=== PATIENT | female | born 1980 | race Native Hawaiian/Other Pacific Islander ===

== ENCOUNTER 2018-02-15 22:29 | Emergency (ER) | payer OTHER ==
[~2018-02-15] VITALS: Ht 160 cm; Wt 63.5 kg
--- NOTE | 2018-02-15 23:08 | NUR ---
PT AAOX4, AMBULATORY IN NO DISTRESS.C/O GENERALIZED HEADACHE, CANDICE HAND NUMBNESS,AND TINGLING OF THE LIPS, NO NEURO DEFICITS NOTED.PT BREATHING EVEN UNLABORED, ABD SOFT NON DISTENDED WITH +BS, SKIN W/D TO TOUCH WITH GOOD TURGOR, DENIES URINARY SYMPTOMS.BED IN LOWEST POSITION,LOCKED, HOB UP,SR UP X2 FOR SAFETY,CB WITHIN REACH, WILL CONTINUE WITH POC
[2018-02-15 23:22] LABS: BASOPHILS # (AUTO) 0.1 K/uL (0.0-8.0); EOSINOPHILS # (AUTO) 0.3 K/uL (0.0-0.7); EOSINOPHILS % (AUTO) 2.2 % (0.0-7.0); HEMATOCRIT 40.6 % (31.2-41.9); LYMPHOCYTES # (AUTO) 2.6 K/uL (20.0-40.0); LYMPHOCYTES % (AUTO) 20.8 % (20.5-51.5); MEAN CORPUSCULAR HEMOGLOBIN 30.3 uug (24.7-32.8); MEAN CORPUSCULAR HGB CONC 35 g/dL (32.3-35.6); MEAN CORPUSCULAR VOLUME 87.9 fL (75.5-95.3); MONOCYTES # (AUTO) 0.6 K/uL (2.0-10.0); PLATELET COUNT (AUTO) 356 K/uL (179-408); RED BLOOD CELL COUNT(AUTO) 4.62 MIL/uL (3.63-4.92); WHITE BLOOD COUNT (AUTO) 12.6 K/uL (3.8-11.8)
[2018-02-15 23:31] LABS: BILIRUBIN,TOTAL 0.3 mg/dL (0.2-1.0); CREATININE 0.8 mg/dL (0.6-1.3); POTASSIUM 3.6 mmol/L (3.5-5.1); TOTAL PROTEIN, SERUM 7.9 g/dL (6.4-8.2)
--- NOTE | 2018-02-15 23:55 | NUR ---
PTAAOX4, AMBULATORY IN A A STEADY GAIT,NO NEURO DEFICIT NOTED.PT ADVISED TO F/U WITH PMD OR RETURN TO ER FOR WORSENING OF SYMPTOMS, VERBALIZES UNDERSTANDING.
== END 2018-02-16 | disposition home or self-care (01) ==
LOC: ER 22:33
DX: G43.909 Migraine, unspecified, not intractable, without status migrainosus (principal); Z91.040 Latex allergy status
CPT/HCPCS: 36415; 70450; 85025; A4663